=== PATIENT | male | born 2000 | race Caucasian/White ===

== ENCOUNTER → 2019-03-28 11:21 | Outpatient (CLI) | payer OTHER, SELFPAY ==
[2019-03-28 12:22] LABS: Add Manual Diff / Slide Review NO; Basophils Absolute Auto 0 /uL (0-100); Basophils Percent Auto 0.7 % (0-2); Eosinophils Absolute Auto 100 /uL (0-450); Eosinophils Percent Auto 2.2 % (2-4); Hematocrit 43.2 % (41-53); Hemoglobin 14.5 g/dL (13.5-17.5); Lymphocytes Absolute Auto 1700 /uL (1100-4500); Lymphocytes Percent Auto 31.5 % (25-40); Mean Corpuscular HGB Conc 33.7 % (30-36); Mean Corpuscular Hemoglobin 26.8 PG (26-34); Mean Corpuscular Volume 79.5 fL (80-100); Monocytes Absolute Auto 500 /uL (0-900); Monocytes Percent Auto 8.7 % (3-14); Neutrophils Absolute Auto 3000 /uL (1500-7000); Neutrophils Percent Auto 56.9 % (50-75); Platelet Count 234 X10^3/uL (150-400); Red Blood Cell Count 5.43 X10^6/uL (4.5-5.9); Red Cell Distribution Width 13.7 % (11.6-14.8); White Blood Cell Count 5.3 X10^3/uL (4.5-11.0)
[2019-03-28 12:25] LABS: Alanine Aminotransferase 29 IU/L (21-72); Albumin 4.7 g/dL (3.5-5.0); Albumin Globulin Ratio 1.5 (1.0-2.8); Alkaline Phosphatase 66 U/L (38-126); Aspartate Aminotransferase 26 IU/L (17-59); BUN Creatinine Ratio 13.3 (6-22); Bilirubin Total 0.6 mg/dL (0.2-1.3); Blood Urea Nitrogen 12 mg/dL (9-20); Calcium 9.3 mg/dL (8.4-10.2); Carbon Dioxide 29 mmol/L (22-32); Chloride 102 mmol/L (98-107); Estimated Glomerular Filt Rate > 60.0 mL/min (>60); Globulin 3.1 g/dL (1.7-4.1); Glucose 95 mg/dL (70-100); HEMOLYSIS < 15 (0-50); Potassium 4.5 mmol/L (3.4-5.1); Sodium 141 mmol/L (137-145); Total Protein 7.8 g/dL (6.3-8.2)
== END ==
PROVIDERS: Visit Provider Physician Assistant
DX: K92.1 Melena (principal)
CPT/HCPCS: 36415; 80053; 85025

== ENCOUNTER 2019-06-05 06:37 | Day surgery (SDC) | payer OTHER, SELFPAY ==
[2019-06-05] VITALS (8 sets, daily range): BP systolic 102–124; BP diastolic 55–73; PULSE 55–65; RESP 15–20; TEMP 36.2–36.8; O2SAT 97–100
--- NOTE | 2019-06-05 | PATH_ITS ---
[facility] Accession Number: [id number] . 01 Material submitted: . PART A: small bowel - TERMINAL ILEUM BIOPSY PART B: colon - CECAL BIOPSY PART C: rectum - RECTAL BIOPSY . 02 Diagnosis: A. Terminal Ileum, Biopsy: Ileal mucosa with benign lymphoid hyperplasia. Negative for active inflammation, granulomata, dysplasia or malignancy. . B-C: Cecum, Rectum, Biopsies: Colonic mucosa with no diagnostic abnormality. Negative for active or microscopic colitis. Negative for granulomata, dysplasia or malignancy. [facility]V 06/06/2019 1357 Local . 02 Electronically signed: . Adelfo Azar MD, PhD, Pathologist NPI- [id number] . 01 Gross description: . Part A: TERMINAL ILEUM BIOPSY: Received in formalin are 4 fragment(s) of garcia, soft tissue measuring 0.1 x 0.1 x 0.1 cm to 0.3 x 0.2 x 0.2 cm submitted entirely in 1 cassette(s) Part B: CECAL BIOPSY: Received in formalin are 2 fragment(s) of garcia, soft tissue measuring 0.1 x 0.1 x 0.1 cm in aggregate submitted entirely in 1 cassette(s) Part C: RECTAL BIOPSY: Received in formalin are 2 fragment(s) of garcia, soft tissue measuring 0.1 x 0.1 x 0.1 cm to 0.3 x 0.3 x 0.3 cm submitted entirely in 1 cassette(s) [place] [place] 2301 Local . 02 Pathologist provided ICD-10: Z12.11, R19.4 . 02 CPT . 278323, [id number], [id number] Performed at: [address] [address], [place], [place] [id number] MD Placido De Los Santos MD Phone: [phone] Performed at: 02 [facility] [address] [place] [id number] MD Anca Gann MD Phone: [phone]
--- NOTE | 2019-06-05 07:34 | PM.HP.1 ---
History of Present Illness History of Present Illness Date Patient Seen: 06/05/19 Time Patient Seen: 07:42 Chief complaint: [id number] Narrative: This is a 18-year-old male who over the past 1 year has had episodes of blood per rectum. Episodes last for approximately one-week at a time maybe once per month then spontaneously resolves. No significant abdominal pain nausea vomiting or unintentional weight loss. No history of inflammatory bowel disease family history of IBD or colorectal cancer. He presents today for a diagnostic colonoscopy. No history of peptic ulcer disease. Patient History Family & Social History Family History Mother Hypothyroidism, unspecified type Tobacco & Substance use: Smoking Status Never smoker alcohol intake never Meds Home Medications and Allergies Home Medications Medication Instructions Recorded Confirmed Type Fish Oil See Rx Instructions .ROUTE .COMPLEX 03/28/19 History Allergies Allergy/AdvReac Type Severity Reaction Status Date / Time No Known Drug Allergies Allergy Unverified 03/28/19 10:27 Review of Systems Review of Systems ROS Unobtainable: All systems reviewed & are unremarkable except as noted in HPI and below Exam Narrative Exam Narrative: General-no acute distress, well nourished HEENT-moist mucous membranes, no scleral icterus Neck-supple, no lymphadenopathy Chest- non labored respirations, clear to auscultation bilaterally Cardiac-regular rate no peripheral edema Abdomen-soft, nontender, non distended Extremities-warm, well perfused Neurological-alert and oriented, no focal deficits Assessment & Plan Assessment & Plan narrative: The patient requires diagnostic colonoscopy for blood per rectum. Technical details were discussed. Risks, benefits, alternatives explained. Risks including but not limited to myocardial infarction, aspiration, bleeding, pain, missed lesion, incomplete examination, need for further radiographic studies, colonic perforation, and need for major abdominal surgery were discussed. All questions were answered to their satisfaction, and they are in agreement with this plan.
[2019-06-05] MEDS: SODIUM CHLORIDE 0.9% 1,000 ML 200 ML IV (07:57)
[2019-06-05] MEDS: MIDAZOLAM 5 MG/5 ML VIAL 9 MG IV (08:27)
[2019-06-05] MEDS: fentaNYL 250 MCG/5 ML INJ IV (08:28)
--- NOTE | 2019-06-05 08:31 | PM.OP.ENDO ---
Operative Date/Time/Diagnoses Date of procedure: 06/05/19 Time of procedure: 08:31 Pre-op diagnosis: rectal bleeding Post-op diagnosis: same Procedure & Clinicians Study performed: Colonoscopy and ileoscopy Same procedure as scheduled: Yes Indications: 18-year-old male with episodes of blood per rectum presents for diagnostic colonoscopy. Surgeon: Inocente Rowley Procedure Notes SCOAP/Timeout: Performed Procedure in detail: Patient placed in left lateral decubitus position. Time out was performed. Procedural sedation was administered with Versed and Fentanyl. A rectal exam demonstrated no external hemorrhoids no internal masses. Colonoscopy scope was placed into the rectum and advanced through the colon to the cecum. The ileocecal valve was identified. The terminal ileum was intubated. The ileum was normal in its appearance. Random biopsies of the ileum cecum and rectum were taken. hemostatic after biopsies. The scope was then slowly withdrawn examining colon thoroughly in all directions. The colonoscopy was notable for the following 1. Normal appearing colon and ileum 2. Excellent prep Scope withdrawal time: 9 Sedation minutes: 26 Specimen(s): other (terminal ileum, cecum, rectum) Complications: none Impression: normal colonoscopy Post-procedure Recommendations: Other recommendation (will refer to GI) Disposition: same day surgery
== END 2019-06-05 09:27 | disposition home or self-care (01) ==
PROVIDERS: PCP Physician Assistant; Visit Provider Surgery
PROC: 0DJD8ZZ Inspection of Lower Intestinal Tract, Via Natural or Artificial Opening Endoscopic (ICD-10-PCS; CPT 45378; principal; 2019-06-05 07:45)
DX: K62.5 Hemorrhage of anus and rectum (principal)
CPT/HCPCS: 45380; 99152; J2250; J3010

== ENCOUNTER → 2020-07-23 16:09 | Outpatient (CLI) | payer OTHER, SELFPAY ==
[2020-07-23 18:06] LABS: Magnesium 2.3 mg/dL (1.6-2.3)
[2020-07-23 18:19] LABS: Erythrocyte Sedimentation Rate 1 MM/HR (0-15)
[2020-07-23 18:38] LABS: TSH w/ Reflex to FT4 1.17 uIU/mL (0.47-4.68)
[2020-07-23 19:13] LABS: Folate 12.4 ng/mL (2.76-20.0); Vitamin B12 516 pg/mL (239-931)
== END ==
PROVIDERS: PCP Physician Assistant; Referring Provider Psychiatry & Neurology Psychiatry; Visit Provider Psychiatry & Neurology Psychiatry
DX: F34.1 Dysthymic disorder (principal)
CPT/HCPCS: 36415; 82607; 82746; 83735; 84443; 85651